=== PATIENT | male | born 1975 | race African-American/Black ===

== ENCOUNTER 2016-06-28 19:05 | Emergency (ER) | payer SELFPAY ==
[~2016-06-28] VITALS: Ht 188 cm; Wt 92.7 kg
[2016-06-28 19:06] VITALS: BP 184/125
[2016-06-28] MEDS ORDERED: MORPHINE SULFATE 4 MG/ML SYRINGE IVP ONE (20:45)
[2016-06-28] MEDS ORDERED: ACETAMINOPHEN 1000 MG/ISO-OSM 100 ML IV ONE (20:45)
[2016-06-28 20:55] LABS: BASOPHILS % (AUTO) 1.5 % (0.0-2.0); EOSINOPHILS % (AUTO) 2.3 % (1.0-6.0); HEMATOCRIT 49.8 % (41-53); HEMOGLOBIN 16.5 g/dL (13.5-17.5); LYMPHOCYTES % (AUTO) 36.8 % (22.0-44.0); MEAN CORPUSCULAR HEMOGLOBIN 29.9 pg (26.0-34.0); MEAN CORPUSCULAR HGB CONC 33.1 G/dL (31.0-37.0); MEAN CORPUSCULAR VOLUME 90 fL (80-100); MONOCYTES # (AUTO) 0.7 K/uL (0.1-1.0); MONOCYTES % (AUTO) 12.2 % (2.0-9.0); NEUTROPHILS # (AUTO) 2.5 K/uL (1.8-7.7); NEUTROPHILS % (AUTO) 47.2 % (40.0-70.0); PLATELET COUNT (AUTO) 314 K/uL (150-450); RED BLOOD CELL COUNT(AUTO) 5.51 MIL/uL (4.50-5.90); RED CELL DISTRIBUTION WIDTH 13.3 % (11.5-14.5); WHITE BLOOD COUNT (AUTO) 5.3 K/uL (4.5-11.0)
[2016-06-28 21:03] LABS: ANION GAP 9 mmol/L (8-16); CALCIUM, TOTAL 8.5 mg/dL (8.8-10.5); CARBON DIOXIDE 29 mmol/L (22-29); CHLORIDE 102 mmol/L (98-107); CREATININE 1.35 mg/dL (0.60-1.30); GLOMERULAR FILTR. RATE CALC > 60 mL/min (>60); POTASSIUM 3.8 mmol/L (3.5-5.1); SODIUM SERUM 140 mmol/L (136-145); UREA NITROGEN, BLOOD 11 mg/dL (7-18)
[2016-06-28 21:06] LABS: ALANINE AMINOTRANSFERASE 23 U/L (12-78); ALBUMIN 3.7 g/dL (3.4-5.0); ASPARTATE AMINOTRANSFERASE 13 U/L (15-37); BILIRUBIN,TOTAL 0.6 mg/dL (0.1-1.0)
[2016-06-28 21:19] LABS: B-TYPE NATRIURETIC PEPTIDE 7 pg/mL (0-100)
== END 2016-06-28 21:52 | disposition home or self-care (01) ==
LOC: EMS 19:06
DX: R51 Headache (principal); R07.89 Other chest pain; I10 Essential (primary) hypertension; K02.9 Dental caries, unspecified
CPT/HCPCS: 36415; 71010; 80053; 83880; 84484; 85025; 99285; J0131; 93005; J2270

== ENCOUNTER 2018-07-30 23:01 | Emergency (ER) | payer OTHER ==
[~2018-07-30] VITALS: Ht 188 cm; Wt 90.0 kg
[2018-07-30] MEDS ORDERED: DEXAMETHASONE SOD PHOS 4 MG/ML 5 ML VIAL IM ONE (23:45)
[2018-07-30] MEDS ORDERED: CloNIDine HCL 0.1 MG TABLET PO ONE (23:45)
[2018-07-30] MEDS ORDERED: PENICILLIN G BENZATHINE LA 1,200,000 UNITS/2 ML SYRINGE IM ONE (23:45)
[2018-07-30] MEDS ORDERED: HYDROCODONE/ACETAMINOPHEN 5-325 MG TABLET PO ONE (23:45)
[2018-07-31] MEDS ORDERED: CloNIDine HCL 0.1 MG TABLET PO ONE (00:30)
[2018-07-31] MEDS ORDERED: LORazepam 1 MG TABLET PO ONE (00:30)
[2018-07-31 01:59] VITALS: BP 165/90
== END 2018-07-31 01:59 | disposition home or self-care (01) ==
LOC: EMS 23:02
DX: J02.0 Streptococcal pharyngitis (principal); I10 Essential (primary) hypertension; F12.10 Cannabis abuse, uncomplicated; F15.10 Other stimulant abuse, uncomplicated
CPT/HCPCS: 96372; 99284; J0561; J1100

== ENCOUNTER 2019-03-02 18:49 | Emergency (ER) | payer OTHER ==
[~2019-03-02] VITALS: Ht 188 cm; Wt 95.5 kg
[2019-03-02 18:56] VITALS: BP 156/128
== END 2019-03-02 19:30 | disposition left against medical advice (07) ==
LOC: EMS 18:50
DX: Z53.21 Procedure and treatment not carried out due to patient leaving prior to being seen by health care provider (principal)

== ENCOUNTER 2019-03-14 11:11 | Emergency (ER) | payer OTHER ==
[~2019-03-14] VITALS: Ht 188 cm; Wt 90.9 kg
[2019-03-14] MEDS ORDERED: HYDR25TA PO (11:21)
[2019-03-14] MEDS ORDERED: CloNIDine HCL 0.1 MG TABLET PO ONE (11:45)
[2019-03-14] MEDS ORDERED: LORazepam 1 MG TABLET PO ONE (13:15)
[2019-03-14 13:32] VITALS: BP 165/115
== END 2019-03-14 13:51 | disposition home or self-care (01) ==
LOC: EMS 11:12
DX: R51 Headache (principal); I10 Essential (primary) hypertension; F12.90 Cannabis use, unspecified, uncomplicated; F15.90 Other stimulant use, unspecified, uncomplicated; Z79.899 Other long term (current) drug therapy

== ENCOUNTER 2019-05-21 21:25 | Emergency (ER) | payer OTHER ==
[~2019-05-21] VITALS: Ht 188 cm; Wt 90.9 kg
[~2019-05-21 21:25] MED LIST: HYDR-1475 PO
[2019-05-21] MEDS ORDERED: KETOROLAC TROMETHAMINE 30 MG/ML VIAL IM ONE (23:00)
[2019-05-21] MEDS ORDERED: LORazepam 1 MG TABLET PO ONE (23:00)
[2019-05-21] MEDS ORDERED: CloNIDine HCL 0.2 MG TABLET PO ONE (23:00)
[2019-05-22 00:34] VITALS: BP 144/79
== END 2019-05-22 00:40 | disposition home or self-care (01) ==
LOC: EMS 21:25
DX: I10 Essential (primary) hypertension (principal); R35.0 Frequency of micturition; F12.90 Cannabis use, unspecified, uncomplicated; F19.90 Other psychoactive substance use, unspecified, uncomplicated
CPT/HCPCS: 96372; 99283; J1885

== ENCOUNTER 2019-07-26 11:29 | Emergency (ER) | payer OTHER ==
[~2019-07-26] VITALS: Ht 188 cm; Wt 90.9 kg
[2019-07-26 12:58] VITALS: BP 142/95
== END 2019-07-26 13:06 | disposition home or self-care (01) ==
LOC: EMS 11:35
DX: R51 Headache (principal); I10 Essential (primary) hypertension; F12.90 Cannabis use, unspecified, uncomplicated; F15.90 Other stimulant use, unspecified, uncomplicated

== ENCOUNTER 2020-09-16 16:27 | Emergency (ER) | payer OTHER ==
[~2020-09-16] VITALS: Ht 185.4 cm; Wt 95.5 kg
[2020-09-16] MEDS ORDERED: HYPERTENSION PO (16:41)
[2020-09-16 18:04] LABS: APPEARANCE,URINE CLEAR (CLEAR); BILIRUBIN,URINE NEGATIVE (NEGATIVE); GLUCOSE, URINE (UA) NEGATIVE (NEGATIVE); KETONES,URINE NEGATIVE (NEGATIVE); LEUKOCYTE ESTERASE ,URINE NEGATIVE (NEGATIVE); NITRATE,URINE NEGATIVE (NEGATIVE); OCCULT BLOOD,URINE NEGATIVE (NEGATIVE); PROTEIN,URINE NEGATIVE (NEGATIVE); UROBILINOGEN,URINE 0.2 mg/dL (<=1.0)
[2020-09-16] MEDS ORDERED: AZITHROMYCIN 500 MG TABLET PO ONE (18:45)
[2020-09-16] MEDS ORDERED: CefTRIAXone SODIUM 1 GM/VIAL IM ONE (18:45)
[2020-09-16] MEDS ORDERED: LIDOCAINE/PF 1% 2 ML VIAL IM ONE (18:45)
[2020-09-16] MEDS ORDERED: AmLODIPine BESYLATE 5 MG TABLET PO ONE (18:45)
[2020-09-16] MEDS ORDERED: CloNIDine HCL 0.1 MG TABLET PO ONE (19:45)
[2020-09-16 20:03] LABS: RBC,URINE None Seen /HPF (0-2); WBC,URINE None Seen /HPF (0-5)
[2020-09-16 20:04] LABS: BACTERIA,URINE None Seen /HPF (None Seen); SQUAMOUS EPITHELIAL CELL,UR None Seen /LPF (None Seen)
[2020-09-16 20:34] VITALS: BP 180/121
== END 2020-09-16 20:24 | disposition home or self-care (01) ==
LOC: EMS 16:27
DX: R30.0 Dysuria (principal); Z20.2 Contact with and (suspected) exposure to infections with a predominantly sexual mode of transmission; I10 Essential (primary) hypertension; F12.90 Cannabis use, unspecified, uncomplicated; F15.90 Other stimulant use, unspecified, uncomplicated; Z79.899 Other long term (current) drug therapy
CPT/HCPCS: 81001; 87491; 87591; 96372; 99284; A9575; J0696; J3490

== ENCOUNTER 2021-04-30 08:03 | Emergency (ER) | payer OTHER ==
[~2021-04-30] VITALS: Ht 188 cm; Wt 95.0 kg
[~2021-04-30 08:03] MED LIST changes: -HYDR-1475 PO; +HYPERTENSION PO
[2021-04-30 08:35] VITALS: BP 189/116
[2021-04-30] MEDS ORDERED: PERMETHRIN 5% 60 GM CREAM TP ONE (08:45)
[2021-04-30] MEDS ORDERED: AZITHROMYCIN 500 MG TABLET PO ONE (08:45)
[2021-04-30] MEDS ORDERED: CefTRIAXone SODIUM 1 GM/VIAL IM ONE (08:45)
[2021-04-30] MEDS ORDERED: LIDOCAINE/PF 1% 2 ML VIAL IM ONE (08:45)
== END 2021-04-30 09:29 | disposition home or self-care (01) ==
LOC: EMS 08:03
DX: B86 Scabies (principal); F15.10 Other stimulant abuse, uncomplicated; I10 Essential (primary) hypertension; F12.90 Cannabis use, unspecified, uncomplicated; Z20.2 Contact with and (suspected) exposure to infections with a predominantly sexual mode of transmission
CPT/HCPCS: 96372; 99283; J0696; J3490; Q9967